=== PATIENT | female | born 1955 | race Hispanic/Latino ===

== ENCOUNTER → 2018-07-16 | Outpatient (CLI) | payer MEDICARE ==
--- NOTE | 2018-07-16 16:35 | Diagnostic Imaging Report ---
EXAMINATION: PA and lateral views of the chest. COMPARISON: None CLINICAL HISTORY: Angina, dyspnea DISCUSSION: The lungs are well-inflated. No focal airspace consolidation, pleural effusion, or pneumothorax. Cardiomediastinal contour and pulmonary vasculature are within normal limits. No acute osseous abnormality. Multilevel degenerative disc changes of the thoracic spine. IMPRESSION: No acute cardiopulmonary abnormalities. Signed by: Dr. Martínez Tavares M.D. on 07/16/2018 4:31 PM
== END ==
LOC: RAD 15:58
PROVIDERS: ATTEND Family Medicine
DX: I20.9 Angina pectoris, unspecified (principal); R06.00 Dyspnea, unspecified
CPT/HCPCS: 71046

== ENCOUNTER → 2018-12-22 | Outpatient (CLI) | payer OTHER ==
--- NOTE | 2018-12-22 21:24 | Diagnostic Imaging Report ---
HEEL RT HISTORY: Heel pain. COMPARISON: None available. FINDINGS: Bones: No acute displaced fracture. Moderate to large plantar and posterior calcaneal enthesophytes. Osseous alignment is within normal limits. Joints: Scattered mild degenerative changes of the midfoot. Soft tissues: The soft tissues appear unremarkable. IMPRESSION: No acute radiographic abnormality. Signed by: DR. Brayan Guidry MD on 12/22/2018 9:21 PM
== END ==
LOC: RAD 16:57
PROVIDERS: ATTEND Family Medicine
DX: M79.671 Pain in right foot (principal)

== ENCOUNTER 2022-05-11 14:55 | Emergency (ER) | payer MEDICARE, OTHER ==
[~2022-05-11] VITALS: Ht 160 cm; Wt 94.8 kg
[2022-05-11 16:13] LABS: BASOPHILS # (AUTO) 0.1 (0.0-0.1); BASOPHILS % 0.3 % (0.0-1.0); EOSINOPHILS # (AUTO) 0.1 (0.0-0.4); EOSINOPHILS % 0.6 % (0.0-6.0); HEMATOCRIT 27.9 % (34.2-44.1); HEMOGLOBIN 8.2 g/dL (12.0-16.0); LYMPHOCYTES # (AUTO) 5.1 (1.0-3.2); LYMPHOCYTES % 31.5 % (18.0-39.1); MEAN CORPUSCULAR HEMOGLOBIN 22.3 pg (28-32); MEAN CORPUSCULAR HGB CONC 29.4 g/dL (31-35); MEAN CORPUSCULAR VOLUME 75.8 fL (81-99); MONOCYTES # (AUTO) 0.9 (0.2-0.8); MONOCYTES % 5.5 % (4.4-11.3); NEUTROPHILS # (AUTO) 9.8 (2.1-6.9); PLATELET COUNT 264 x10e3/uL (140-360); RED BLOOD COUNT 3.68 x10e6/uL (3.6-5.1); RED CELL DISTRIBUTION WIDTH 16.8 % (11.7-14.4)
[2022-05-11 16:29] LABS: ALBUMIN 3.7 g/dL (3.5-5.0); CALCIUM 9.2 mg/dL (8.4-10.2); CREATININE, SERUM 0.81 mg/dL (0.57-1.11)
== END 2022-05-11 16:43 | disposition home or self-care (01) ==
LOC: MERGE 16:06 → ER 16:06
DX: D64.9 Anemia, unspecified (principal); I10 Essential (primary) hypertension; E11.9 Type 2 diabetes mellitus without complications; E78.5 Hyperlipidemia, unspecified; I50.9 Heart failure, unspecified; K21.9 Gastro-esophageal reflux disease without esophagitis
CPT/HCPCS: 36415; 80053; 85025; 99283

== ENCOUNTER → 2022-05-24 | Day surgery (SDC) | payer MEDICARE, OTHER ==
[2022-05-22 09:22] LABS: BASOPHILS % 0.6 % (0.0-1.0); EOSINOPHILS # (AUTO) 0.2 (0.0-0.4); EOSINOPHILS % 2.8 % (0.0-6.0); HEMATOCRIT 28.1 % (34.2-44.1); HEMOGLOBIN 7.9 g/dL (12.0-16.0); LYMPHOCYTES # (AUTO) 1.7 (1.0-3.2); LYMPHOCYTES % 27.3 % (18.0-39.1); MEAN CORPUSCULAR HEMOGLOBIN 23.4 pg (28-32); MEAN CORPUSCULAR HGB CONC 28.1 g/dL (31-35); MEAN CORPUSCULAR VOLUME 83.1 fL (81-99); MONOCYTES # (AUTO) 0.4 (0.2-0.8); NEUTROPHILS # (AUTO) 3.8 (2.1-6.9); PLATELET COUNT 170 x10e3/uL (140-360); RED BLOOD COUNT 3.38 x10e6/uL (3.6-5.1); RED CELL DISTRIBUTION WIDTH 21.6 % (11.7-14.4)
[~2022-05-24] MED LIST: ADVAIR 100-501 EACH INH; CRESTOR10 MG PO; FUROSEMIDE40 MG PO; HUMULIN N100 UNITS/ SC; LIDOCAINE HCL 2% LOCAL INJ 5 ML SDV VIAL INJ ONE; LORATADINE10 MG PO; LOSARTAN POTAS100 MG PO; MAGNESIUM OXID400 MG PO; METFORMIN HCL500 MG PO; MIDAZOLAM HCL 2 MG/2 ML VIAL ONE; NEXIUM40 MG PO; POTASSIUM CHLO20 ME1 PO; PROAIR HFA INH8.5 GM INH; PROPOFOL IV EMULSION 10 MG/ML 20 ML VIAL ONE; TRULICITY1.5 MG/0.5 SC; TYLENOL325 MG PO
[2022-05-24 11:29] VITALS: BP 154/67
== END | disposition home or self-care (01) ==
LOC: OR 08:25
PROVIDERS: ATTEND Internal Medicine Gastroenterology
DX: K29.70 Gastritis, unspecified, without bleeding (principal); D12.2 Benign neoplasm of ascending colon; D12.4 Benign neoplasm of descending colon; D12.5 Benign neoplasm of sigmoid colon; K31.7 Polyp of stomach and duodenum; K31.819 Angiodysplasia of stomach and duodenum without bleeding; K20.90 Esophagitis, unspecified without bleeding; K21.9 Gastro-esophageal reflux disease without esophagitis; K64.8 Other hemorrhoids; Z71.3 Dietary counseling and surveillance; D64.89 Other specified anemias; I10 Essential (primary) hypertension; I49.8 Other specified cardiac arrhythmias; E11.9 Type 2 diabetes mellitus without complications; J45.909 Unspecified asthma, uncomplicated; Z88.0 Allergy status to penicillin; Z01.810 Encounter for preprocedural cardiovascular examination; Z01.812 Encounter for preprocedural laboratory examination; Z20.822 Contact with and (suspected) exposure to COVID-19; Z79.4 Long term (current) use of insulin; Z79.899 Other long term (current) drug therapy; Z68.39 Body mass index [BMI] 39.0-39.9, adult; Z87.891 Personal history of nicotine dependence; Z80.0 Family history of malignant neoplasm of digestive organs
CPT/HCPCS: 0223U; 36415 ×2; 43239; 43270; 45380; 45385; 82948; 85025; 93005; C9113; J2001; J2250; J2704; 45378

== ENCOUNTER → 2022-06-19 | Outpatient (CLI) | payer MEDICARE, OTHER ==
[~2022-06-19] MED LIST changes: -LIDOCAINE HCL 2% LOCAL INJ 5 ML SDV VIAL INJ ONE; -MIDAZOLAM HCL 2 MG/2 ML VIAL ONE; -PROPOFOL IV EMULSION 10 MG/ML 20 ML VIAL ONE
== END ==
LOC: DX 08:57
PROVIDERS: ATTEND Internal Medicine Gastroenterology
DX: K29.70 Gastritis, unspecified, without bleeding (principal); D64.89 Other specified anemias
CPT/HCPCS: 74250

== ENCOUNTER 2023-01-22 21:27 | Emergency (ER) | payer MEDICARE, OTHER ==
[~2023-01-22] VITALS: Ht 160 cm; Wt 94.8 kg
[2023-01-22] MEDS ORDERED: ASPIRIN 81 MG CHEW TAB PO STA (21:41)
[2023-01-22 21:54] LABS: BASOPHILS % 0.5 % (0.0-1.0); EOSINOPHILS # (AUTO) 0.3 (0.0-0.4); EOSINOPHILS % 4.4 % (0.0-6.0); HEMATOCRIT 33.2 % (34.2-44.1); HEMOGLOBIN 10.9 g/dL (12.0-16.0); LYMPHOCYTES # (AUTO) 2.9 (1.0-3.2); LYMPHOCYTES % 37.1 % (18.0-39.1); MEAN CORPUSCULAR HGB CONC 32.8 g/dL (31-35); MEAN CORPUSCULAR VOLUME 91.5 fL (81-99); MONOCYTES # (AUTO) 0.5 (0.2-0.8); MONOCYTES % 6.7 % (4.4-11.3); NEUTROPHILS % 50.9 % (38.7-80.0); PLATELET COUNT 175 x10e3/uL (140-360); RED BLOOD COUNT 3.63 x10e6/uL (3.6-5.1); RED CELL DISTRIBUTION WIDTH 13.2 % (11.7-14.4)
[2023-01-22 22:16] LABS: ALANINE AMINOTRANSFERASE 20 IU/L (0-55); ALBUMIN 3.8 g/dL (3.5-5.0); ALBUMIN/GLOBULIN RATIO 1.1 (0.8-2.0); ALKALINE PHOSPHATASE 109 IU/L (40-150); ANION GAP 14.2 mmol/L (8-16); BLOOD UREA NITROGEN 23 mg/dL (7-26); BUN/CREATININE RATIO 28 (6-25); CALCIUM 9.1 mg/dL (8.4-10.2); CARBON DIOXIDE 24 mmol/L (22-29); CHLORIDE 106 mmol/L (98-107); CREATINE KINASE 46 IU/L (29-168); CREATININE, SERUM 0.83 mg/dL (0.57-1.11); GLUCOSE 237 mg/dL (74-118); POTASSIUM 4.2 mmol/L (3.5-5.1); SODIUM 140 mmol/L (136-145)
[2023-01-22] MEDS ORDERED: NAPROSYN500 MG PO (23:15)
[2023-01-22 23:21] VITALS: BP 127/55
== END 2023-01-22 23:23 | disposition home or self-care (01) ==
LOC: ER 21:46
DX: R07.89 Other chest pain (principal); E11.65 Type 2 diabetes mellitus with hyperglycemia; I10 Essential (primary) hypertension; E78.5 Hyperlipidemia, unspecified; I50.9 Heart failure, unspecified; K21.9 Gastro-esophageal reflux disease without esophagitis; R94.31 Abnormal electrocardiogram [ECG] [EKG]
CPT/HCPCS: 36415; 71045; 80053; 82550; 82553; 84484; 85025; 93005; 99284